=== PATIENT | female | born 1975 | race Caucasian/White ===

== ENCOUNTER → 2016-04-09 | Outpatient (CLI) | payer BC ==
[~2016-04-09] MED LIST: CARI350T28 PO; FLAX1CAP11 PO; GUARCHW PO; LEVO200T PO; METH0.2T39 PO; PREN1TAB29 PO; [UNRECOGNIZED DRUG - OTHER] PO
[2016-04-09 18:13] LABS: THYROID STIMULATING HORMONE 1.13 uIu/ml (0.300-4.500)
== END | disposition home or self-care (01) ==
LOC: C.LAB1850 17:04
PROVIDERS: ATTEND Student in an Organized Health Care Education/Training Program
DX: E03.9 Hypothyroidism, unspecified (principal)

== ENCOUNTER → 2016-10-30 | Outpatient (CLI) | payer BC ==
--- NOTE | 2016-10-31 13:42 | MAMMOGRAPHY REPORT ---
BILATERAL DIGITAL SCREENING MAMMOGRAM TOMOSYNTHESIS WITH CAD: 10/30/2016 CLINICAL HISTORY: Routine screening. TECHNIQUE: Breast tomosynthesis in addition to standard 2D mammography was performed. Current study was also evaluated with a Computer Aided Detection (CAD) system. COMPARISON: Comparison is made to exam dated: 06/17/2015 mammogram - [facility]. BREAST COMPOSITION: There are scattered areas of fibroglandular density in both breasts. FINDINGS: The parenchymal pattern is unchanged. No developing mass, architectural distortion or clus ter of suspicious microcalcifications is seen in either breast. IMPRESSION: ACR BI-RADS CATEGORY 2: BENIGN There is no mammographic evidence of malignancy. A 1 year screening mammogram is recommended. The pa tient will receive written notification of the results. Approximately 10% of breast cancers are not detected with mammography. A negative mammographic report should not delay biopsy if a clinically suggestive mass is present. Violeta Gonsales M.D. ay/:10/30/2016 16:06:30 Roller Leveler: Arnulfo ATWOOD(Manasa)([place]), [facility] letter sent: Normal 1/2 BI-RADS Code: ACR BI-RADS Category 2: Benign
== END | disposition home or self-care (01) ==
LOC: C.MAMM 12:35
PROVIDERS: ATTEND Obstetrics & Gynecology
DX: Z12.31 Encounter for screening mammogram for malignant neoplasm of breast (principal)

== ENCOUNTER 2016-12-08 07:17 | Emergency (ER) | payer BC ==
[~2016-12-08] VITALS: Ht 160 cm; Wt 85.5 kg
[~2016-12-08 07:17] MED LIST changes: -CARI350T28 PO
[2016-12-08 07:21] VITALS: TEMP 36.3; Ht 160 cm; Wt 85.5 kg
[2016-12-08] MEDS ORDERED: KETOROLAC TROMETHAMINE 60 MG/2 ML VIAL IM STA (07:42)
[2016-12-08] MEDS ORDERED: CARI350T28 PO (08:38)
[2016-12-08] MEDS ORDERED: EMPTY 8 DRAM VIAL ONE (08:42)
[2016-12-08] MEDS ORDERED: CARISOPRODOL 350 MG TAB PO ONE (08:45)
[2016-12-08 08:48] VITALS: BP 107/64; PULSE 88; O2SAT 97
--- NOTE | 2016-12-12 13:48 | EMERGENCY ROOM VISIT NOTE ---
ED Visit Note First contact with patient: 07:26 CHIEF COMPLAINT: Low back pain HISTORY OF PRESENT ILLNESS: This 41-year-old white female patient complains of pain in the low back which began after shoveling in her flowerbeds last weekend. Symptoms started the day after she was shoveling. The pain was gradual in onset, is now constant and worse with movement. She states she did do a fair amount of traveling with 2 plane rides and a long car ride yesterday. Denies any bowel or bladder difficulties. There has been no leg numbness or tingling. No recent direct trauma. No vomiting or abdominal pain. There is a prior history of similar pain last year. It was not as intense as now. Pain is 9/10. She has tried icing as well as her foam roller without success. She also saw her chiropractor without success. Pain radiates into the thighs both anterior and posterior. REVIEW OF SYSTEM: HEENT: No dizziness, visual problems, hearing loss, or tinnitus. There is no difficulty swallowing and no oral lesions are present. LYMPH: No adenopathy. PULMONARY: No cough, shortness of breath, sputum production or hemoptysis. CARDIOVASCULAR: No chest pain, palpitations, shortness of breath or peripheral edema. GASTROINTESTINAL: No diarrhea, constipation, nausea, vomiting, or abdominal pain. GENITOURINARY: No dysuria, frequency, urgency or nocturia. NEUROLOGIC: No weakness, muscle tenderness, epilepsy or history of neurological problems. No history of chronic headaches. MUSCULOSKELETAL: No history of joint tenderness/swelling. No history of arthritis or arthralgias. SKIN: No rashes or lesions. ENDOCRINE: No history of diabetes or abnormal hair growth. PMH: Supplemental sheet was reviewed and signed. Previous surgeries: D&C 2, wisdom tooth extraction Medical history: Hypothyroidism, history of pyelonephritis, history of Bronchitis. Current medications: IUD, Synthroid Allergies: NKDA Family history: Significant for diabetes, heart disease, hypertension, cancer, and gallbladder disease. Parents are living. SOCIAL HISTORY: Patient lives at home with her . Employed. No tobacco use, occasional EtOH use. PHYSICAL EXAM: Vital Signs: Afebrile. Reviewed and filed in patient's chart. General: Well-developed, well-nourished, middle-aged white female, in obvious discomfort. No acute distress. She is standing in the room and has difficulty sitting. Alert and oriented. Skin:Warm and dry with good turgor. No rashes or lesions. No ecchymosis or erythema. The patient is not diaphoretic. No abrasions. Physio-taping is present on her low back. NECK: Supple, non- tender. ABDOMEN: Soft, non-tender, no masses or organs felt. Musculoskeletal: There is tenderness in the paraspinous muscles in the lumbar area. No tenderness over the spinous processes of the lumbar vertebrae. She has focal pain over the L5-S1 disc space. Range of motion of the back is limited secondary to pain, especially with rotation. Lower extremities have normal strength including dorsi-flexion and plantar flexion of the feet. Neurologic: normal and symmetrical knee and ankle reflexes. Gross sensation is intact across the lower extremities by soft touch. Peripheral pulses are 2+. DIAGNOSIS: Lumbar back pain with radiculopathy DISCHARGE INSTRUCTIONS AND TREATMENT: Patient was educated regarding today's findings. Conservative care measures were discussed. She was given an injection of Toradol 60 mg IM. Pain improved but did not fully resolved. She was able to move more comfortably and desired discharge. Gentle stretching daily. Ice to the back intermittently over the next 3 days, and then use moist heat. Avoid any heavy lifting x5 days. Tylenol and Motrin every 6 hours as needed for mild to moderate discomfort. She was given a home pack of Soma 350 mg every 6 hours if needed for the pain. Driving precautions were given. Additional prescription was provided. Follow-up with her PCP for physical therapy referral. She already has a foam roller at home and may continue to use this. Return to the ED for any acute changes or loss of bowel or bladder control. She was reassured that I do not suspect fracture, cauda equina syndrome, or spinal infection. Possibility of disc disease, herniation, nerve root impingement, and muscle strain were also considered and discussed. Problem List Medical Problems: (1) Bronchitis Status: Chronic (2) D & E Status: Resolved (3) Hypothyroidism Status: Chronic (4) Pyelonephritis Status: Resolved Current/Historical Medications Scheduled Levothyroxine Sodium (Synthroid), 200 MCG PO QAM Scheduled PRN Carisoprodol (Soma), 350 MG PO Q6H PRN for Pain Allergies Coded Allergies: No Known Allergies (Verified , `, 12/08/16) Vital Signs Date Time Temp Pulse Resp B/P (MAP) Pulse Ox O2 Delivery O2 Flow Rate FiO2 12/08/16 08:48 88 18 107/64 97 12/08/16 07:21 36.3 94 20 127/93 94 Room Air Medications Administered Medications (Trade) Dose Ordered Sig/Dinesh Route Start Time Stop Time Status Last Admin Dose Admin Ketorolac Tromethamine (Toradol Inj) 60 mg NOW STAT IM 12/08/16 07:42 12/08/16 07:43 DC 12/08/16 07:55 60 MG Carisoprodol (Soma Tab) 350 mg NOW ONCE PO 12/08/16 08:45 12/08/16 08:46 DC 12/08/16 08:44 350 MG Departure Information Prescriptions Carisoprodol (Soma) 350 Mg Tab 350 MG PO Q6H Y for Pain, #15 TAB Prov: Lucio Pulido,P.A. 12/08/16 Referrals Nino Boles M.D. ([facility]) (PCP) Patient Instructions [facility]
== END 2016-12-08 08:48 | disposition home or self-care (01) ==
LOC: C.EDB 07:18
DX: M54.16 Radiculopathy, lumbar region (principal); E03.9 Hypothyroidism, unspecified; N12 Tubulo-interstitial nephritis, not specified as acute or chronic; Z79.899 Other long term (current) drug therapy; Z83.3 Family history of diabetes mellitus; Z82.49 Family history of ischemic heart disease and other diseases of the circulatory system; Z80.9 Family history of malignant neoplasm, unspecified; Z83.79 Family history of other diseases of the digestive system